=== PATIENT | female | born 1960 | race Caucasian/White ===

== ENCOUNTER 2019-09-30 10:55 | Emergency (ER) | payer OTHER ==
[2019-09-30 11:38] VITALS: TEMP 98; BMI 31.2
[2019-09-30] MEDS ORDERED: ACETAMINOPHEN 1000 MG/100 ML VIAL (NON FORMULARY) IVPB ONE (11:40)
[2019-09-30] MEDS ORDERED: ACETAMINOPHEN INJECTION 100 ML IVPB ONE (11:51)
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
[2019-09-30 12:28] LABS: BASO % 0.5 % (0-2.0); EOS % 0.6 % (0-4.5); HEMATOCRIT 40.4 % (32.4-45.2); HEMOGLOBIN 13.6 GM/dL (10.7-15.3); LYMPH % 18.3 % (8-40); MCH 25.6 pg (25.7-33.7); MCHC 33.6 g/dl (32.0-36.0); MEAN CELL VOLUME 76.2 fl (80-96); MEAN PLT VOLUME 9.2 fl (7.5-11.1); NEUT % 75.6 % (42.8-82.8); PLATELET COUNT 263 K/MM3 (134-434); RBC 5.31 M/mm3 (3.60-5.2); RDW 13.8 % (11.6-15.6); WHITE BLOOD COUNT 15.6 K/mm3 (4.0-10.0)
[2019-09-30 13:08] LABS: ALBUMIN 4.1 g/dl (3.4-5.0); BLOOD UREA NITROGEN 15.4 mg/dL (7-18); CALCIUM 9.2 mg/dL (8.5-10.1); CREATININE 0.7 mg/dL (0.55-1.3); POTASSIUM 4.9 mmol/L (3.5-5.1); TOT PROT 7.7 g/dl (6.4-8.2)
[2019-09-30 13:09] LABS: BILIRUBIN,TOTAL 0.3 mg/dL (0.2-1)
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
[2019-09-30 15:44] VITALS: BP 142/91; PULSE 72
== END 2019-09-30 15:45 | disposition home or self-care (01) ==
LOC: JER 10:55
PROC: 2W3RX1Z Immobilization of Left Lower Leg using Splint (ICD-10-PCS; principal; 2019-09-30)
PROC: 3E0333Z Introduction of Anti-inflammatory into Peripheral Vein, Percutaneous Approach (ICD-10-PCS; 2019-09-30)
DX: S82.892A Other fracture of left lower leg, initial encounter for closed fracture (principal); V89.2XXA Person injured in unspecified motor-vehicle accident, traffic, initial encounter
CPT/HCPCS: 36415; 70450-TC; 71260-TC; 73560-TC-LT-FY; 73560-TC-RT-FY; 73590-TC-LT-FY; 73610-TC-LT-FY; 73630-TC-LT; 74177-TC; 80053; 85025; 99285-25; J0131; Q9967

== ENCOUNTER 2022-04-21 10:25 | Emergency (ER) | payer OTHER ==
[2022-04-21] MEDS ORDERED: SODIUM CHLORIDE 0.9% 500 ML INFUS.BAG IV ONE (11:04)
[2022-04-21] MEDS ORDERED: ONDANSETRON 4 MG/2 ML VIAL IVPUSH ONE (11:04)
[2022-04-21 11:06] VITALS: BMI 24.3
[2022-04-21] MEDS ORDERED: ONDANSETRON 4 MG/2 ML VIAL ONE (11:25)
[2022-04-21 12:14] LABS: BASO % 0.4 % (0-2.0); HEMATOCRIT 43.2 % (32.4-45.2); HEMOGLOBIN 14.5 GM/dL (10.7-15.3); MCHC 33.6 g/dl (32.0-36.0); MEAN CELL VOLUME 74.2 fl (80-96); MEAN PLT VOLUME 8.4 fl (7.5-11.1); MONO % 12.8 % (3.8-10.2); NEUT % 45.8 % (42.8-82.8); PLATELET COUNT 292 10^3/uL (134-434); RBC 5.82 M/mm3 (3.60-5.2); RDW 14.3 % (11.6-15.6); WHITE BLOOD COUNT 6.5 K/mm3 (4.0-10.0)
[2022-04-21 12:17] LABS: URINE APPEARANCE CLEAR; URINE BILIRUBIN NEGATIVE (NEGATIVE); URINE COLOR YELLOW; URINE GLUCOSE (UA) NEGATIVE (NEGATIVE); URINE KETONE NEGATIVE (NEGATIVE); URINE LEUK ESTERASE NEGATIVE (NEGATIVE); URINE NITRITE NEGATIVE (NEGATIVE); URINE PROTEIN NEGATIVE (NEGATIVE); URINE UROBILINOGEN 0.2 mg/dL (0.2-1.0)
[2022-04-21 12:34] LABS: BLOOD UREA NITROGEN 13.2 mg/dL (7-18); CALCIUM 9.6 mg/dL (8.5-10.1)
[2022-04-21 12:37] LABS: CREATININE 0.7 mg/dL (0.55-1.3)
[2022-04-21 12:38] LABS: BILIRUBIN,TOTAL 0.4 mg/dL (0.2-1)
[2022-04-21 14:11] VITALS: BP 151/81; PULSE 79; RESP 16; TEMP 97.2
== END 2022-04-21 14:42 | disposition home or self-care (01) ==
LOC: JER 10:25
PROC: 3E033GC Introduction of Other Therapeutic Substance into Peripheral Vein, Percutaneous Approach (ICD-10-PCS; principal; 2022-04-21)
DX: R21 Rash and other nonspecific skin eruption (principal)
CPT/HCPCS: 36415; 71046-TC-FY; 80053; 81003; 85025; 87086; 99284-25